=== PATIENT | female | born 1935 | race Caucasian/White ===

== ENCOUNTER 2016-07-25 12:22 | Emergency (ER) | payer MEDICARE ==
--- NOTE | 2016-07-25 12:50 | ER Document Report ---
ED Fall - General Chief Complaint: Fall Injury Stated Complaint: FALL/HEAD PAIN Mode of Arrival: Medic Information source: Patient, Emergency Med Personnel Cannot obtain history due to: Other - pt amnestic to events Notes: This is an 80-year-old female who presents via EMS after a fall down 6 or 7 stairs. Patient states that she felt fine upon awakening this morning and was having a good day until the episode. However, she does not remember falling and she states that she awoke in the ambulance unsure of what happened. Family members who witnessed the event state that she lost her balance at the top of the steps and tumbled down about 6 steps hitting her head on the concrete. She was dazed after the event did not lose consciousness according to family. She has not had nausea or vomiting. She does complain of a headache. She denies neck pain. She also complains of mild left knee pain. Her tetanus is up-to- date as of last year. She is not on anticoagulation other than daily aspirin. - Related data Allergies/Adverse Reactions: No Known Allergies Allergy (Unverified 07/25/16 12:44) Past Medical History - General Information source: Patient, Relative - Social History Smoking Status: Former Smoker Frequency of alcohol use: Rare Drug Abuse: None Lives with: Family Family History: Reviewed & Not Pertinent - Past Medical History Cardiac Medical History: Reports: Hx Hypercholesterolemia, Hx Hypertension Pulmonary Medical History: Reports: Hx Pneumonia Endocrine Medical History: Reports: Hx Diabetes Mellitus Type 2 Malignancy Medical History: Reports: None Psychiatric Medical History: Reports: None Traumatic Medical History: Reports: Hx Fractures Past Surgical History: Reports: Hx Appendectomy, Hx Cholecystectomy, Hx Hysterectomy - Immunizations Immunizations up to date: Yes Review of Systems - Review of Systems Notes: REVIEW OF SYSTEMS: CONSTITUTIONAL : Denies fever, chills, or sweats. Denies recent illness. EENT: Denies eye, ear, throat, or mouth pain or symptoms. Denies nasal or sinus congestion. CARDIOVASCULAR: Denies chest pain. RESPIRATORY: Denies cough, cold, or chest congestion. Denies shortness of breath, difficulty breathing, or wheezing. GASTROINTESTINAL: Denies abdominal pain. Denies nausea, vomiting, or diarrhea. GENITOURINARY: Denies difficulty urinating, painful urination, burning, frequency, or blood in urine. MUSCULOSKELETAL: L knee pain/bruise SKIN: Denies rash or skin lesions. HEMATOLOGIC : Denies easy bruising or bleeding. LYMPHATIC: Denies swollen, enlarged glands. NEUROLOGICAL: as per HPI PSYCHIATRIC: Denies anxiety or stress or depression. ALL OTHER SYSTEMS REVIEWED AND NEGATIVE. Physical Exam - Vital signs Vitals: Resp 20 07/25/16 12:26 - Notes Notes: PHYSICAL EXAMINATION: GENERAL: Well-appearing, well-nourished and in no acute distress. Pleasant and conversant elderly female HEAD: Normocephalic. Moderate occipital hematoma with superficial scalp laceration. EYES: Pupils equal round and reactive to light, extraocular movements intact, sclera anicteric, conjunctiva are normal. ENT: nares patent, oropharynx clear without exudates. Moist mucous membranes. NECK: Normal range of motion, supple without lymphadenopathy. No midline C- spine tenderness to palpation. C-collar placed for mechanism LUNGS: Breath sounds clear to auscultation bilaterally and equal. No wheezes rales or rhonchi. HEART: Regular rate and rhythm without murmurs ABDOMEN: Soft, nontender, normoactive bowel sounds. No guarding, no rebound. No masses appreciated. EXTREMITIES: Normal range of motion, no pitting or edema. Left knee with small hematoma laterally with contusion. Full range of motion. Distal pulses intact. NEUROLOGICAL: Cranial nerves grossly intact. Normal speech Normal sensory and motor exam PSYCH: Normal mood, normal affect. SKIN: Warm, Dry, , no rashes noted. Course - Re-evaluation Re-evalutation: 07/25/16 14:23 Discussed with radiologist the head CT results. CT concerning for posttraumatic subarachnoid hemorrhage. Discussed with the family and the patient. She remains alert and conversant and neurologically intact. Family states they prefer [facility] over [facility]. I have paged neurosurgery at [facility]. 07/25/16 14:48 Discussed with neurosurgeon who states that there are no ICU beds available at [facility]. He recommends transfer to another facility if possible. I discussed with Dr. Hatfield (trauma - [facility]) who accepts transfer. - Vital Signs Vital signs: Temp Pulse Resp BP Pulse Ox 98.4 F 84 14 152/75 H 94 07/25/16 15:00 07/25/16 12:30 07/25/16 15:01 07/25/16 15:01 07/25/16 15:01 - Laboratory Result Diagrams: 07/25/16 13:05 07/25/16 13:05 Laboratory results interpreted by me: 07/25/16 07/25/16 13:05 13:05 RDW 14.9 H Seg Neutrophils % 80.0 H Lymphocytes % 12.2 L Carbon Dioxide 31 H BUN 43 H Creatinine 1.42 H Est GFR ( Amer) 43 L Est GFR (Non-Af Amer) 35 L Glucose 210 H Alkaline Phosphatase 138 H - Diagnostic Test Radiology reviewed: Image reviewed - CT head: thin rim R subdural, patchy diffuse traumatic subdural hemorrhage, Reports reviewed - EKG Interpretation by Me Additional EKG results interpreted by me: 07/25/16 14:48 EKG at 1311 demonstrates normal sinus rhythm with a rate of 84. There is a first-degree AV block. There are no ST elevations or depressions. Critical Care Note - Critical Care Note Total time excluding time spent on procedures (mins): 35 - minutes of critical care time spent in direct contact evaluating and reevaluating the patient, treating symptoms, reviewing labs and studies and speaking with family and consultants excluding any procedures Discharge - Discharge Clinical Impression: Traumatic subarachnoid hemorrhage Qualifiers: Encounter type: initial encounter Loss of consciousness presence/duration: without LOC Qualified Code(s): S06.6X0A - Traumatic subarachnoid hemorrhage without loss of consciousness, initial encounter Traumatic subdural hematoma Qualifiers: Encounter type: initial encounter Loss of consciousness presence/duration: without LOC Qualified Code(s): S06.5X0A - Traumatic subdural hemorrhage without loss of consciousness, initial encounter Condition: Serious Disposition: [facility]
[2016-07-25 13:16] LABS: ABSOLUTE EOSINOPHILS # (AUTO) 0.3 10^3/uL (0.0-0.6); ABSOLUTE MONOCYTES (AUTO) 0.4 10^3/uL (0.1-1.4); ABSOLUTE NEUT (AUTO) 6.8 10^3/uL (1.7-8.2); BASOPHILS % (AUTO) 0.5 % (0-2); HEMATOCRIT 41.2 % (36.0-47.0); HEMOGLOBIN 13.9 g/dL (12.0-15.5); HGB HCT DIFFERENCE 0.5; LYMPHOCYTES % (AUTO) 12.2 % (13-45); MEAN CORPUSCULAR HEMOGLOBIN 28.6 pg (27.0-33.4); MEAN CORPUSCULAR HGB CONC 33.8 g/dL (32.0-36.0); MEAN CORPUSCULAR VOLUME 85 fl (80-97); MONOCYTES % (AUTO) 4.3 % (3-13); RED BLOOD COUNT 4.87 10^6/uL (3.72-5.28); RED CELL DISTRIBUTION WIDTH 14.9 % (11.5-14.0); WHITE BLOOD COUNT 8.5 10^3/uL (4.0-10.5)
[2016-07-25 13:25] LABS: PROTHROMBIN TIME 13.7 SEC (11.4-15.4)
[2016-07-25 13:26] LABS: PARTIAL THROMBOPLASTIN TIME 33.7 SEC (23.5-35.8)
[2016-07-25 13:34] LABS: ALANINE AMINOTRANSFERASE 38 U/L (9-52); ALBUMIN 3.9 g/dL (3.5-5.0); ALKALINE PHOSPHATASE 138 U/L (38-126); ANION GAP 12 (5-19); ASPARTATE AMINO TRANSFERASE 31 U/L (14-36); BILIRUBIN,TOTAL 0.9 mg/dL (0.2-1.3); BLOOD UREA NITROGEN 43 mg/dL (7-20); CARBON DIOXIDE 31 mmol/L (22-30); CHLORIDE 101 mmol/L (98-107); CREATININE RESULT 1.42 mg/dL (0.52-1.25); GLUCOSE 210 mg/dL (75-110); POTASSIUM 4.3 mmol/L (3.6-5.0); SODIUM 144.2 mmol/L (137-145)
[2016-07-25] MEDS ORDERED: MORPHINE SULFATE 10 MG/ML INJ IV ONE (14:50)
[2016-07-25] MEDS ORDERED: ONDANSETRON HCL INJ/PF 4 MG/2 ML SDV IV ONE (14:50)
[2016-07-25 15:05] VITALS: BP 152/75
--- NOTE | 2016-07-26 16:05 | EKG REPORT ---
SEVERITY:- ABNORMAL ECG - SINUS RHYTHM FIRST DEGREE AV BLOCK PROBABLE INFERIOR INFARCT, OLD : Confirmed by: Michelle Soto MD 26-Jul-2016 16:04:01
== END 2016-07-25 13:27 | disposition short-term general hospital (02) ==
LOC: ER 12:22
DX: S06.6X0A Traumatic subarachnoid hemorrhage without loss of consciousness, initial encounter (principal); S06.5X0A Traumatic subdural hemorrhage without loss of consciousness, initial encounter; S01.01XA Laceration without foreign body of scalp, initial encounter; S80.02XA Contusion of left knee, initial encounter; W10.8XXA Fall (on) (from) other stairs and steps, initial encounter; R51 Headache; M25.562 Pain in left knee; Z79.82 Long term (current) use of aspirin; Z87.891 Personal history of nicotine dependence; E11.9 Type 2 diabetes mellitus without complications; I10 Essential (primary) hypertension
CPT/HCPCS: 93005; 99291; 96374; 36415; 85025; 85610; 85730; 80053; 73562; 70450; 72125; 93010; J2270